=== PATIENT | female | born 1985 | race Hispanic/Latino ===

== ENCOUNTER 2022-05-02 04:33 | Emergency (ER) | payer SELFPAY ==
[2022-05-02] MEDS ORDERED: Ibuprofen 200 MG TAB ONE (04:51)
[2022-05-02] MEDS ORDERED: Dexamethasone 4 MG TAB ONE (04:51)
[2022-05-02] MEDS ORDERED: diphenhydrAMINE 50 MG CAP ONE (04:54)
== END 2022-05-02 04:59 | disposition home or self-care (01) ==
LOC: ERS 04:33
DX: R22.0 Localized swelling, mass and lump, head (principal); G89.29 Other chronic pain; K08.89 Other specified disorders of teeth and supporting structures
CPT/HCPCS: 99281; J8540